=== PATIENT | male | born 1950 | race Two or more races ===

== ENCOUNTER 2017-08-12 07:11 | Day surgery (SDC) | payer MEDICARE ==
[2017-08-12] VITALS (7 sets, daily range): BP systolic 130–148; BP diastolic 72–88
[~2017-08-12] VITALS: Ht 177.8 cm; Wt 84.8 kg
[~2017-08-12 07:11] MED LIST: LR 1000ml 1,000 ML IVLG SCH
[2017-08-12] MEDS ORDERED: Propofol 200mg/20ml IV ONE (07:30)
[2017-08-12] MEDS ORDERED: LR 1000ml ONE (07:30)
[2017-08-12] MEDS ORDERED: Lidocaine 1% MPF 10mg/ml 5ml ONE (07:30)
--- NOTE | 2017-08-12 07:38 | Anethesia Preoperative Eval ---
Anesthesia Pre-op PMH/ROS General Date of Evaluation: Aug 12, 2017 Time of Evaluation: 07:37 Anesthesiologist: hill Mallampati Score Class I : Soft palate, uvula, fauces, pillars visible Class II: Soft palate, uvula, fauces visible Class III: Soft palate, base of uvula visible Class IV: Only hard plate visible Mallampati Classification: Class II Surgeon: charo Diagnosis: colon screening Surgical Procedure: colonoscopy Anesthesia History: none Family History: no anesthesia problems Allergies: Coded Allergies: No Known Allergies (Unverified , 08/11/17) Medications: see eMAR Anesthesia Pre-op Phys. Exam Physician Exam Constitutional: NAD Neurologic: CN 2-12 intact Cardiovascular: RRR Respiratory: CTA Gastrointestinal: S/NT/ND Airway Exam Mallampati Score: Class II MO: full Anesthesia Pre-op A/P Risk Assessment & Plan Assessment: asa Plan: mac Status Change Before Surgery: [place] Frias Aug 12, 2017 07:38
[2017-08-12] MEDS ORDERED: DiphenhydrAMINE 50mg/ml Inj IVP PRN (07:45)
[2017-08-12] MEDS ORDERED: Midazolam 2mg/2ml Inj IVP PRN (07:45)
[2017-08-12] MEDS ORDERED: Atropine Inj 1mg/10ml Syr IV PRN (07:45)
[2017-08-12] MEDS ORDERED: fentaNYL 100 mcg/2 mL IV PRN (07:45)
--- NOTE | 2017-08-12 07:51 | Short Stay Surgery H&P ---
History of Present Illness History of Present Illness Chief Complaint screening colonoscopy HPI Everett Whaley is a 67 year old male who was admitted on for Colon Screening Patient History Allergies: Coded Allergies: No Known Allergies (Unverified , 08/11/17) PAST MEDICAL HISTORY: Past Surgeries: Social History: Review of Systems Cardiovascular: Reports: no symptoms Respiratory: Reports: no symptoms Skeletal: Reports: no symptoms Gastrointestinal: Reports: no symptoms Genitourinary: Reports: no symptoms Neurologic: Reports: no symptoms Endocrine: Reports: no symptoms Hematologic: Reports: no symptoms Physical Exam Vital Signs Last Vital Signs Date Time Temp Pulse Resp B/P (MAP) Pulse Ox O2 Delivery O2 Flow Rate FiO2 08/12/17 07:38 97.3 55 18 148/79 99 Room Air Skin: normal HENT: normal Heart: normal Lungs: normal Abdomen: normal Extremities: normal Genitourinary: normal Plan Plan of Care Colonoscopy Preop Interventions None. Summary of Findings See the reports Final Diagnosis: Attestation Are the patient's medical conditions optimized for surgery? Attestation Response: yes GENARO OWEN Aug 12, 2017 07:51
--- NOTE | 2017-08-12 07:52 | Pre-Procedure Note/Attestation ---
Pre-Procedure Note/Attestation Complete Prior to Procedure Planned Procedure: left Procedure Narrative: Total colonoscopy for screening colon for cancer/polyps Indications for Procedure Pre-Operative Diagnosis: R/O colon polyps/CA Attestation I attest that I discussed the nature of the procedure; its benefits; risks and complications; and alternatives (and the risks and benefits of such alternatives ), prior to the procedure, with the patient (or the patient's legal medical collections representative). I attest that, if there was a reasonable possibility of needing a blood transfusion, the patient (or the patient's legal medical collections representative) was given the [facility] standardized written summary, pursuant to the Bryan Ros Blood Safety Act ([place] Health and Safety Code # 1645, as amended). I attest that I re-evaluated the patient just prior to the surgery and that there has been no change in the patient's H&P, except as documented below: LEXIE,SAID Aug 12, 2017 07:52
[2017-08-12] MEDS ORDERED: NKM (08:02)
--- NOTE | 2017-08-12 08:24 | Anethesia Preoperative Eval ---
Anesthesia Pre-op PMH/ROS General Date of Evaluation: Aug 12, 2017 Time of Evaluation: 07:40 Anesthesiologist: hill ASA Score: ASA 2 Mallampati Score Class I : Soft palate, uvula, fauces, pillars visible Class II: Soft palate, uvula, fauces visible Class III: Soft palate, base of uvula visible Class IV: Only hard plate visible Mallampati Classification: Class II Surgeon: charo Diagnosis: colon screening Surgical Procedure: colonoscopy Anesthesia History: none Social History: current smoker Family History: no anesthesia problems Allergies: Coded Allergies: No Known Allergies (Unverified , 08/11/17) Medications: see eMAR Anesthesia Pre-op Phys. Exam Physician Exam Constitutional: NAD Neurologic: CN 2-12 intact Cardiovascular: RRR Respiratory: CTA Gastrointestinal: S/NT/ND Airway Exam Mallampati Score: Class II MO: full Neck: short TMD: 2fb ROM: limited Anesthesia Pre-op A/P Risk Assessment & Plan Assessment: asa2 Plan: mac Status Change Before Surgery: No Pre-Antibiotics Drug: [place] Jim Aug 12, 2017 08:24
--- NOTE | 2017-08-12 08:33 | Endoscopy Procedure Note ---
Endoscopy Procedure Note Indication for Procedure: Screening colonoscopy Procedures Performed: colonoscopy - Minimal internal hemorrhoid. Multiple diminutive/hyperlastic polyps removed by cold biopsy forceps and cold and hot snare from different parts of the colon as looked benign. Specimen: yes Pt Tolerated Procedure Well: Yes Estimated Blood Loss: none Anesthesiologist: Dr. Florez Anesthesia: moderate sedation Medication Given: see anesthesia record Implant(s) used?: No 50 yrs or older w/o bx or poly: Yes 10yrs. F/U not recommended: Yes If not recommended, why?: 10 yrs. F/U needed: Yes 18 years or older w/prev. colo: Yes <3yrs. since last colonoscopy: No Med reason:<3 yrs.: GENARO OWEN Aug 12, 2017 08:33
--- NOTE | 2017-08-12 08:34 | Discharge Instructions ---
Discharge Instructions Discharge Instructions Follow up with: Visit doctor in office after 2 weeks For Congestive Heart Failure Reminder Report to your physician any weight gain of 5 pounds or more in one week. GENARO OWEN Aug 12, 2017 08:34
--- NOTE | 2017-08-12 08:50 | Immediate Post-Op Evaluation ---
Immediate Post-Op Evalulation Immediate Post-Op Evalulation Procedure: colonoscopy Date of Evaluation: Aug 12, 2017 Time of Evaluation: 08:50 IV Fluids: 450ml lr Blood Products: none Estimated Blood Loss: negligible Blood Pressure Systolic: 133 Blood Pressure Diastolic: 78 Pulse Rate: 57 Respiratory Rate: 18 O2 Sat by Pulse Oximetry: 99 Temperature (Fahrenheit): 98.4 Pain Score (1-10): 0 Nausea: No Vomiting: No Complications none Patient Status: awake, reacts, patent Hydration Status: adequate Drug: [place] Jim Aug 12, 2017 08:50
--- NOTE | 2017-08-12 08:52 | 48 Hour Post Anesthesia Eval ---
Post Anesthesia Evaluation Procedure: colonoscopy Date of Evaluation: Aug 12, 2017 Time of Evaluation: 08:52 Blood Pressure Systolic: 133 0: 77 Pulse Rate: 60 Respiratory Rate: 18 Temperature (Fahrenheit): 98.4 O2 Sat by Pulse Oximetry: 100 Airway: patent Nausea: No Vomiting: No Pain Intensity: 0 Hydration Status: adequate Cardiopulmonary Status: stable Mental Status/LOC: patient returned to baseline Post-Anesthesia Complications: none Follow-up care needed: N/A CHINA ATKINS Aug 12, 2017 08:52
--- NOTE | 2017-08-12 22:30 | Operative Note - Dictated ---
DATE OF OPERATION: 08/12/2017 PROCEDURE: Total colonoscopy with multiple polypectomies. PREOPERATIVE DIAGNOSIS: Screening colonoscopy. POSTOPERATIVE DIAGNOSES: 1. Multiple diminutive/hyperplastic polyps were found in different areas of the colon as were described and removed by cold and hot snare and biopsy forceps. 2. Minimal internal hemorrhoids, otherwise completely normal total colonoscopy. MEDICATION USED: Per Dr. Florez, anesthesiologist. INSTRUMENT: GIF Olympus videocolonoscope. DESCRIPTION OF PROCEDURE: The patient after arriving endoscopy unit, was told about risks and benefits of the procedure, which he accepted and signed the informed consent. He was then put on the left lateral decubitus position. After adequate IV sedation, the scope was gently passed through the anal area, which revealed the evidence of minimal internal hemorrhoids of no great significance and not friable. At this point, at the level of 16 cm from anal opening, there was seen a hyperplastic polypoid lesion, which looked benign, sized about 2 to 3 mm, which was grabbed with hot snare and totally removed. At this point, the scope was passed through somewhat redundant left colon, which was completely normal reaching to the splenic flexure and guided into the transverse colon. Over the distal transverse area, there was another very small size of 1 to 2 mm flat hyperplastic type of polyp, which was again grabbed with a cold snare and totally removed and the site was coagulated. The scope was then gradually advanced to a normal looking transverse colon reaching to proximal transverse colon, where there was another 2 to 3 mm sized hyperplastic polyp, which was similarly grabbed and removed. Finally, the scope was guided into the right colon all the way to the base of the cecum and over the proximal ascending colon, there was another polypoid lesion that is a size of 2 to 3 mm, somewhat soft and flat, which was grabbed totally with a hot snare and removed and the site of the polypectomy remained to be non-bleeding. At this point, within 10 minutes, the scope was gradually pulled out and further examination of the colon did not reveal any other abnormalities. The patient's cleanup was adequate. At this point, the scope was pulled out and the procedure was terminated. The patient tolerated the procedure well and left the endoscopy room in good condition. Said Santiago Pratt DR: JULIO JOB#: [id number] CC:
== END 2017-08-12 09:35 | disposition home or self-care (01) ==
LOC: GAS 07:11
DX: Z12.11 Encounter for screening for malignant neoplasm of colon (principal); K64.8 Other hemorrhoids; D12.7 Benign neoplasm of rectosigmoid junction; D12.2 Benign neoplasm of ascending colon; D12.3 Benign neoplasm of transverse colon
CPT/HCPCS: 45380; 45384; J2704; J7120; 94003; 94150